=== PATIENT | female | born 1930 | race Asian ===

== ENCOUNTER 2018-11-10 14:39 | Inpatient (IN) | payer OTHER, MEDICAID ==
[~2018-11-10] VITALS: Ht 160 cm; Wt 44.0 kg
--- NOTE | 2018-11-10 14:45 | NUR ---
Placed in room 2 . Placed on senior software tester, blood pressure machine and pulse oximeter. To gown for exam. Side rails up. Report given to Demian NAVARRO.
--- NOTE | 2018-11-10 14:50 | NUR ---
Last teixeira in [facility] - 11/10/18 at 1553 by EUGENIE Patient transported to radiology via EDNA, accompanied by RAD STAFF.
--- NOTE | 2018-11-10 14:50 | NUR ---
PT BIB TRANSPORT FROM [facility] FOR [facility] S/P FALL AND L HUMERAL FX
--- NOTE | 2018-11-10 15:00 | NUR ---
ER at bedside examining patient.
--- NOTE | 2018-11-10 15:35 | NUR ---
Patient transported to radiology via GURNEY, accompanied by RAD STAFF.
[2018-11-10 15:36] LABS: BASOPHILS # (AUTO) 0.1 K/uL (0.0-0.2); BASOPHILS % (AUTO) 0.8 % (0.0-2.0); EOSINOPHILS # (AUTO) 0.2 K/uL (0.0-0.4); EOSINOPHILS % (AUTO) 2.9 % (0.0-4.0); HEMATOCRIT 39.3 % (36-48); HEMOGLOBIN 12.7 g/dL (12.0-16.0); LYMPHOCYTES # (AUTO) 1.6 K/uL (1.0-5.5); LYMPHOCYTES % (AUTO) 22.5 % (20.5-51.5); MEAN CORPUSCULAR HEMOGLOBIN 31 pg (27-31); MEAN CORPUSCULAR HGB CONC 32 % (32-36); MEAN CORPUSCULAR VOLUME 95 fL (79.0-98.0); MONOCYTES # (AUTO) 0.5 K/uL (0.0-1.0); MONOCYTES % (AUTO) 7.4 % (1.7-9.3); NEUTROPHILS # (AUTO) 4.7 K/uL (1.8-7.7); NEUTROPHILS % (AUTO) 66.4 % (40.0-70.0); PLATELET COUNT (AUTO) 259 K/uL (130-430); RED BLOOD CELL COUNT(AUTO) 4.12 MIL/uL (4.2-6.2); RED CELL DISTRIBUTION WIDTH 13.4 % (9.0-15.0); WHITE BLOOD COUNT (AUTO) 7.1 K/uL (4.8-10.8)
--- NOTE | 2018-11-10 15:45 | NUR ---
Returned from radiology, back to [facility].
[2018-11-10 15:47] LABS: ANION GAP 3 (5-15); CALCIUM 9.8 mg/dL (8.4-11.0); CHLORIDE 104 mmol/L (98-107); CREATININE 0.97 mg/dL (0.55-1.30); GLUCOSE 142 mg/dL (70-99); POTASSIUM 4.4 mmol/L (3.5-5.1); SODIUM SERUM 137 mmol/L (136-145); UREA NITROGEN, BLOOD 33 mg/dL (8-21)
[2018-11-10 15:50] LABS: INR 0.9 (0.8-1.2); PROTHROMBIN TIME 9.4 SECS (9.5-12.5)
[2018-11-10 15:52] LABS: ALANINE AMINOTRANSFERASE 17 U/L (12-78); ALBUMIN 3.6 g/dL (3.4-4.8); ASPARTATE AMINOTRANSFERASE 13 U/L (10-37); TOTAL BILIRUBIN 0.5 mg/dL (0.0-1.0)
[2018-11-10 15:54] LABS: ALCOHOL, BLOOD < 3 mg/dL (<10)
--- NOTE | 2018-11-10 16:15 | NUR ---
Pt resting no acute distress noted.Pt responds to verbal stimuli
[2018-11-10] MEDS ORDERED: NACL 0.9% 1,000 ML IV ONE (17:00)
--- NOTE | 2018-11-10 18:00 | NUR ---
# 24 gauge angiocath placed to L chest . Use of asceptic technique. Opsite placed over site. Blood return noted. Flushed with 10 cc of normal saline. No evidence of infiltration noted. Patient tolerated well.
--- NOTE | 2018-11-10 18:10 | NUR ---
IVF infusing,pt tolerating well.
[2018-11-10] MEDS ORDERED: INSU100V9 SQ (18:18)
[2018-11-10] MEDS ORDERED: INSU100V SQ (18:18)
[2018-11-10] MEDS ORDERED: DOCU100T10 PO (18:18)
[2018-11-10] MEDS ORDERED: ASPI-1155 PO (18:18)
[2018-11-10] MEDS ORDERED: MOM PO (18:18)
[2018-11-10] MEDS ORDERED: HYDR-4272 PO (18:19)
--- NOTE | 2018-11-10 18:27 | NUR ---
ADMISSION NOTE Received patient from ER via lena, received report from Demian NAVARRO. Patient admitted with diagnosis of dehydration/failure to thrive. Patient oriented to hospital routine, call light, toileting and safety-unable due to level of conciousness
--- NOTE | 2018-11-10 18:30 | NUR ---
Patient will be admitted to care of Benedict Mahoney. Admitted to Medsurg unit. Will go to room 105A. Summary report printed. Report will be given at bedside.
[2018-11-10 18:45] VITALS: BP_SYST 121
--- NOTE | 2018-11-10 19:10 | NUR ---
RECEIVED BEDSIDE REPORT AT BEDSIDE FROM MELANIE VASQUES,WITH NS INITIATED IN ER INFUSING BY GRAVITY TO BE COMPLETED.AWAKE NONVERBAL,BLINKS BOTH EYES, WHEN ASKED HER NAME.IVF INFUSING @LEFT UPPER CHEST #24 GAUGE.
--- NOTE | 2018-11-10 21:00 | NUR ---
REMAINS NON VERBAL. VITAL SIGNS TAKEN.ADMITTED WITH RIGHT FOREARM FX WITH SPLINTS FIXED IN ER.MOVES FINGERS ON COMMAND ,SKIN Warm, color normal. iv site clear.abdomen soft. incontinent of urine, no BM,NO EDEMA. NS STILL INFUSING ON A PUMP THIS TIME.
[2018-11-10 21:15] VITALS: BP_SYST 109
--- NOTE | 2018-11-10 21:35 | NUR ---
HYGIENE: YULISA CARE RENDERED BY DISTRICT FIRE CHIEF Q. CALL LIGHT WITHIN REACH,BED IN LOW POSITION. REPOSITIONED FOR COMFORT.
--- NOTE | 2018-11-10 21:55 | NUR ---
NOTIFIED Benedict ARNETT FOR ORDERS.
--- NOTE | 2018-11-10 23:00 | NUR ---
PHYSICAL ADMISSION ASSESSMENT COMPLETED.NEW IVF INITIATED. IV SITE CLEAR.
[2018-11-10] MEDS: D5NS 1,000 ML IV SCH (23:07)
--- NOTE | 2018-11-11 | NUR ---
REPOSITIONED FOR COMFORT. NON VERBAL. RIGHT FINGERS MOVES FREELY SKIN WARM TO TOUCH, COLOR NORMAL.
[2018-11-11 02:00] VITALS: BP_SYST 111
[2018-11-11] MEDS ORDERED: HYDROcodone/ACETAMIN 5-325 MG TAB (NORCO/ VICODIN) PO PRN ×2 (02:15)
--- NOTE | 2018-11-11 02:15 | NUR ---
DR. BETITO Granda MADE ROUNDS,SEEN AND EXAMINED PATIENT WITH ORDERS.
--- NOTE | 2018-11-11 04:35 | NUR ---
INCONTINENT: YULISA /SKIN CARE RENDERD. TURNED TO SIDE.
--- NOTE | 2018-11-11 05:30 | NUR ---
IV LINE PUMP ALARM PRESSURE.UNABLE TO FLUSH. FOUND OUT NEEDLE KINKED 2X.UNABLE TO TREAD IN.
--- NOTE | 2018-11-11 05:36 | NUR ---
CONSULTATION PAGED/CALLED Reason for Consultation: FAILURE TO THRIVE Person Who was Notified: AYAKA Consulting Physician: DR. JOHNSON ; STUD DAIRY CATTLE FARMER- DR. JOHNSON Ordering Physician: NILS ARNETT
--- NOTE | 2018-11-11 05:42 | NUR ---
CONSULTATION PAGED/CALLED Reason for Consultation: R HUMERAL FRACTURE Person Who was Notified: AYAKA Consulting Physician: DR. FISEHR Electrical/Instrument Technician Specialty: ORTHO Ordering Physician: BETITO CACERES
--- NOTE | 2018-11-11 06:40 | NUR ---
BLOOD SUGAR 180MG/DL. COVERED WITH SLIDING SCALE HUMOLOG,UPSET BEING POKED. NO S/S OF DISTRESS. TALKING IN HER LANGUAGE. PUSHING RN HANDS WHEN FIXING HER GOWN. CALL LIGHT WITHIN REACH, ALARM OF BED ON.
[2018-11-11] MEDS: INSULIN LISPRO SLIDING SCALE 100 UNITS/ML VIAL (humaLOG) SUBCUT PRN ×3 (07:00→22:01)
[2018-11-11] MEDS ORDERED: INSULIN LISPRO 100 UNIT SQ SCH (07:00)
[2018-11-11] MEDS: D5NS 1,000 ML IV SCH ×2 (08:00→18:32)
[2018-11-11 08:10] VITALS: BP_SYST 111
[2018-11-11] MEDS ORDERED: ASPIRIN 81 MG TAB.CHEW PO SCH (09:00)
[2018-11-11] MEDS ORDERED: PANTOPRAZOLE SODIUM 40 MG TAB PO SCH (09:00)
[2018-11-11] MEDS ORDERED: INSULIN GLARGINE HUM REC ANLOG 100 UNIT SQ SCH (09:00)
[2018-11-11] MEDS: ASPIRIN 81 MG TAB.CHEW PO SCH (09:40)
[2018-11-11] MEDS: MILK OF MAGNESIA 30 ML UDC PO SCH ×3 (09:41→21:52)
[2018-11-11] MEDS: DOCUSATE SODIUM 100 MG CAPSULE PO SCH ×2 (09:41→21:52)
--- NOTE | 2018-11-11 09:45 | NUR ---
Routine Patient resting in bed with no distress noted. Scheduled medications given. Patient stable.
[2018-11-11] MEDS ORDERED: PANTOPRAZOLE SODIUM 40 MG TAB PO ONE (10:00)
--- NOTE | 2018-11-11 10:12 | NUR ---
Nutrition Update Percy Scale 13 noted. Pt admitted for dehydration, FTT. Diet: pureed BMI: 17 kg/m2 RD to follow per nutrition care standards.
[2018-11-11 11:28] VITALS: BP_SYST 135
--- NOTE | 2018-11-11 11:52 | NUR ---
Routine Patient resting quietly in bed with no distress noted. Checked blood sugar: 109 mg/dl - no coverage required per sliding scale. Patient stable.
--- NOTE | 2018-11-11 13:21 | NUR ---
Routine Patient resting in bed with eyes closed. No distress noted. Patient stable.
--- NOTE | 2018-11-11 14:13 | NUR ---
Wound Evaluation: Late note for 11/11/18 at 1413 secondary to patient care. Wound Consult ordered for Low Percy Score. Patient evaluated for a low Percy score of 13. Patient was awake, alert, non-verbal, and received in a Breckenridge Bed with an IsoFlex SHAUNA mattress. Patient is incontinent, and needs assist to turn in bed. Skin is intact. Recommend reposition patient every 2 hours with pillow support. Elevate, off-load and float bilateral heels with pillows. Offload pressure areas with pillows for pressure re-distribution. Perform skin care and monitor skin integrity Q shift. Use moisture barrier cream on moisture susceptible areas QID and PRN for soiling. Initiate low air-loss therapy.
--- NOTE | 2018-11-11 15:11 | NUR ---
Routine Scheduled medication given per order. Patient stable at this time.
--- NOTE | 2018-11-11 15:12 | NUR ---
Nutrition Note RD received Nutrition Consult for Calorie Count from Dr. Menjivar 11/11/18 1860. Pt will be seen for Nutrition Assessment 11/12/18. RD notified [facility] staff of new order for calorie count, and also spoke w/ pt's primary RN and MOSAIC TILE MAKER regarding calorie count as well. Please give completed calorie count sheets to [facility] staff or leave in the [facility] box. RD to continue to follow as per nutrition care standards.
--- NOTE | 2018-11-11 16:16 | NUR ---
Initial DCP assessment : 87-yo, female, bedbound, nonverbal, right elbow fx x week, h/o DM, HTN, Dementia, GERD. BIB EMS from [facility] for ALOCm poor PO intake and increase falls. CM contacted /LVM to [facility]/ Counservator office and to [facility] acute/ # [phone] for their return call for further assessment. Cm to f/u. >> @ 3170 Marquise called back and confirmed the pt has no family and may return to same facility upon discharge. >> Marquise, conservator at [facility] # [phone]. >> Laney Iraheta, Registered Nurse Step Down office at [facility] # [phone].
[2018-11-11 16:21] VITALS: BP_SYST 128
--- NOTE | 2018-11-11 19:30 | NUR ---
OPENING NOTE Received patient resting in bed, awake, and calling out for someone. Non-labored breathing noted. IV to RFA has IVF infusing. Bed is locked to lowest position, bed alarm on, and call light near. Pad is wet and nurse visual merchandising assistant arrived to provide rip-care. Patient was repositioned.
[2018-11-11 20:00] VITALS: BP_SYST 112
--- NOTE | 2018-11-11 21:30 | NUR ---
Medications Due medications given. Patient does not speak Portuguese, however, she did seem to understand that I was checking her fingerstick blood glucose and that she needs insulin. She requested the light off when I was done. Will monitor.
[2018-11-11] MEDS: INSULIN GLARGINE 100 UNITS/ML 10 ML VIAL SUBCUT SCH (22:00)
[2018-11-11 23:17] VITALS: BP_SYST 102
--- NOTE | 2018-11-12 00:11 | NUR ---
Rounds Patient is awake, resting calmly in bed. She was repositioned and cooperated. No sign of distress noted. IVF infusing as ordered. Safety precautions in place and call light w/in reach.
--- NOTE | 2018-11-12 02:30 | NUR ---
Rounds Patient is resting w/eyes closed. Symmetrical rise and fall of chest. She was repositioned and cooperated. No sign of distress noted. IVF infusing as ordered. Safety precautions in place and call light w/in reach.
--- NOTE | 2018-11-12 04:15 | NUR ---
Rounds Patient was provided with rip-care and repositioned for comfort. Patient was calm and cooperative. IVF infusing well. Call light w/in reach.
[2018-11-12] MEDS: PANTOPRAZOLE SODIUM 40 MG TAB PO SCH (06:31)
[2018-11-12] MEDS: D5NS 1,000 ML IV SCH ×2 (06:32→18:00)
--- NOTE | 2018-11-12 06:50 | NUR ---
closing note Patient resting in comfortable position, no sign of distress noted. IVF infusing well, safety precautions in place. Needs met throughout shift, will endorse care.
--- NOTE | 2018-11-12 07:20 | NUR ---
am rounds: Received patient in bed, awake, georgian speaking. IV fluids of D5 NS at 80 cc/hr infusing to left forearm gauge 22. Bed is locked to lowest position, bed alarm on, and call light within reach.
[2018-11-12 07:51] LABS: BASOPHILS % (AUTO) 0.6 % (0.0-2.0); EOSINOPHILS # (AUTO) 0.1 K/uL (0.0-0.4); HEMATOCRIT 35.5 % (36-48); HEMOGLOBIN 11.7 g/dL (12.0-16.0); LYMPHOCYTES # (AUTO) 1.2 K/uL (1.0-5.5); LYMPHOCYTES % (AUTO) 20.1 % (20.5-51.5); MEAN CORPUSCULAR HEMOGLOBIN 31 pg (27-31); MEAN CORPUSCULAR HGB CONC 33 % (32-36); MEAN CORPUSCULAR VOLUME 94 fL (79.0-98.0); MONOCYTES # (AUTO) 0.5 K/uL (0.0-1.0); MONOCYTES % (AUTO) 8.1 % (1.7-9.3); NEUTROPHILS % (AUTO) 69.2 % (40.0-70.0); PLATELET COUNT (AUTO) 239 K/uL (130-430); RED BLOOD CELL COUNT(AUTO) 3.79 MIL/uL (4.2-6.2); RED CELL DISTRIBUTION WIDTH 13.1 % (9.0-15.0); WHITE BLOOD COUNT (AUTO) 5.8 K/uL (4.8-10.8)
[2018-11-12 08:06] LABS: ALANINE AMINOTRANSFERASE 16 U/L (12-78); ALBUMIN 2.8 g/dL (3.4-4.8); ANION GAP 2 (5-15); ASPARTATE AMINOTRANSFERASE 12 U/L (10-37); CALCIUM 8.3 mg/dL (8.4-11.0); CHLORIDE 109 mmol/L (98-107); CREATININE 0.79 mg/dL (0.55-1.30); GLUCOSE 137 mg/dL (70-99); PHOSPHORUS 1.5 mg/dL (2.7-4.5); SODIUM SERUM 139 mmol/L (136-145); TOTAL BILIRUBIN 0.4 mg/dL (0.0-1.0); UREA NITROGEN, BLOOD 25 mg/dL (8-21)
[2018-11-12 08:30] VITALS: BP_SYST 95
[2018-11-12] MEDS: ASPIRIN 81 MG TAB.CHEW PO SCH (09:06)
[2018-11-12] MEDS: DOCUSATE SODIUM 100 MG CAPSULE PO SCH ×2 (09:06→20:17)
[2018-11-12] MEDS: MILK OF MAGNESIA 30 ML UDC PO SCH ×3 (09:06→20:17)
[2018-11-12 11:22] VITALS: BP_SYST 131
--- NOTE | 2018-11-12 11:30 | NUR ---
ROUNDS: Patient is in bed. No signs of discomfort.
[2018-11-12] MEDS: INSULIN LISPRO SLIDING SCALE 100 UNITS/ML VIAL (humaLOG) SUBCUT PRN ×3 (11:40→20:21)
--- NOTE | 2018-11-12 13:57 | NUR ---
Dietitian Recommendations * Recommend continuing puree diet (ONS Ensure Enlive TID comes standard w/ meals; provides 1050 kcal/day, 60 gm protein/day) * Encourage increase PO intakes * Continue calorie count until 11/14/18 or until physician request SANDER WILLAMS Please refer to Nutrition Assessment for details. Addendum: 11/12/18 at [address] Amended: Links added.
--- NOTE | 2018-11-12 15:13 | NUR ---
Ortho consult: Called Dr. Brady's office to follow up on the consult. Spoke with Mami. faxed face sheet to [phone]. Addendum: 11/12/18 at 1614 by Eva Johnson RN Per community health coordinator Jo, she spoke with Dr. Brady yesterday, will not see the patient because he does not accept the insurance that patient has.
[2018-11-12 15:50] VITALS: BP_SYST 105
--- NOTE | 2018-11-12 16:43 | NUR ---
Rounds: Used blue phone to translate . patient is looking for her . industrial gas service helper states "patient is confused."
--- NOTE | 2018-11-12 18:29 | NUR ---
end of shift: Needs attended. No change in assessment. Call light within reach. Bed alarm is on.
--- NOTE | 2018-11-12 19:23 | NUR ---
OPENING NOTES Received pt and endorsement from day shift nurse. Pt is awake, alert and lying in bed. Pt on IVF with D5NS at 80ml/hr and infusing well on left forearm G22. No complains of pain or discomfort at this time. No signs of acute distress or SOB noted. Encouraged to use call light when needed. Safety precautions in place with 3 side rails up, wheels locked, bed alarm on and in lowest position. Call light with pt. Will continue to monitor.
[2018-11-12 20:13] VITALS: BP_SYST 105
[2018-11-12] MEDS: INSULIN GLARGINE 100 UNITS/ML 10 ML VIAL SUBCUT SCH (20:22)
--- NOTE | 2018-11-12 20:22 | NUR ---
MED PASS/FS BLOOD GLUCOSE Pt's blood glucose was 205mg/dL. Humalog 4 units SQ given per protocol and scheduled Lantus 5 units SQ given. All oral due meds given and pt tolerated well. Aspiration precautions maintained with head elevated at 45 degrees. Safety precautions in place and call light with pt. Will continue to monitor.
--- NOTE | 2018-11-13 00:07 | NUR ---
ROUNDS Pt is resting in bed with both eyes closed, with visible chest rise and fall with unlabored breathing noted. IVF infusing well. No signs of acute distress or SOB noted. Safety precautions in place and call light with pt. Will continue to monitor.
--- NOTE | 2018-11-13 03:17 | NUR ---
INCONTINENCE CARE Pt had a loose bowel movement, incontinence care rendered and pt tolerated well. No complains of pain and no signs of acute distress noted. IVF infusing well. Safety precautions in place and call light with pt. Will continue to monitor.
[2018-11-13] MEDS: PANTOPRAZOLE SODIUM 40 MG TAB PO SCH (06:07)
[2018-11-13] MEDS: D5NS 1,000 ML IV SCH ×2 (06:07→20:30)
[2018-11-13] MEDS: INSULIN LISPRO SLIDING SCALE 100 UNITS/ML VIAL (humaLOG) SUBCUT PRN ×4 (06:13→20:56)
--- NOTE | 2018-11-13 06:40 | NUR ---
CLOSING NOTES Pt is awake, alert and lying in bed. IVF infusing well. No complains of pain or discomfort. No signs of acute distress or SOB noted. All needs attended throughout the shift. Safety precautions maintained with 3 side rails up, wheels locked, bed alarm on and in lowest position. Call light with pt. Will endorse to day shift nurse.
--- NOTE | 2018-11-13 08:00 | NUR ---
AM rounds: Received patient in bed, awake, spanish speaking. IV fluids of D5 NS at 80 cc/hr infusing to left forearm gauge 22. Right upper extremity with splint. Able to move fingers, skin is warm. Bed is locked to lowest position, bed alarm on, and call light within reach.
[2018-11-13 08:07] VITALS: BP_SYST 142
[2018-11-13] MEDS: ASPIRIN 81 MG TAB.CHEW PO SCH (08:09)
[2018-11-13] MEDS: DOCUSATE SODIUM 100 MG CAPSULE PO SCH ×2 (08:10→20:57)
[2018-11-13] MEDS: MILK OF MAGNESIA 30 ML UDC PO SCH ×3 (08:10→20:58)
--- NOTE | 2018-11-13 10:22 | NUR ---
Ortho consult: Informed Dr. Beaver that Ortho has not seen patient due to her insurance. Ordered case management for the case.
[2018-11-13 10:27] LABS: BILIRUBIN,URINE NEGATIVE (NEGATIVE); BLOOD, URINE 3+ (NEGATIVE); CLARITY/URINE HAZY (CLEAR); COLOR,URINE YELLOW (YELLOW); GLUCOSE,URINE 1+ (NEGATIVE); KETONES,URINE NEGATIVE (NEGATIVE); LEUKOCYTE ESTERASE ,URINE 3+ (NEGATIVE); NITRITE, URINE NEGATIVE (NEGATIVE); PROTEIN URINE 1+ (NEGATIVE); UROBILINOGEN,URINE 0.2 (0.2-1.0)
[2018-11-13 10:50] LABS: BACTERIA,URINE MANY /HPF (None Seen); WBC,URINE 50-80 /HPF (0-3)
[2018-11-13 10:51] LABS: MUCUS,URINE None Seen /LPF (None Seen)
--- NOTE | 2018-11-13 10:56 | NUR ---
Case management: Spoke with Jacklyn regarding need for ortho consult.
--- NOTE | 2018-11-13 11:06 | NUR ---
CONSULTATION PAGED/CALLED Reason for Consultation: [] RIGHT HUMURUS FX Person Who was Notified: [] BRIELLE Consulting Physician: [] DR Cheryle EPPERSON Certification Officer Specialty: [] ORTHO Ordering Physician: [] DR NILS CISSE
[2018-11-13 12:00] VITALS: BP_SYST 149
--- NOTE | 2018-11-13 12:06 | NUR ---
DC PLANNING Per pt's nurse, Eva, she spoke w Dr Beaver & wants a ARIK for ortho to see pt. Called & left msg for Tanesha MATOS & Mck[employer] Licensed Land Surveyor. Addendum: 11/13/18 at 1407 by Jacklyn Alva RN Per nurse Dr Mcgraw saw pt. Informed Tanesha no ARIK needed.
[2018-11-13] MEDS ORDERED: cefTRIAXone 1 GM in D5W 50 ML IV SCH (12:15)
[2018-11-13] MEDS ORDERED: LORazepam 1 MG TABLET PO PRN (12:15)
--- NOTE | 2018-11-13 13:00 | NUR ---
IV start Patient is screaming, pulled out iv and removed splint. Dr. Kalee Beaver saw patient. Refused splint re application and iv start.
--- NOTE | 2018-11-13 13:59 | NUR ---
ORTHO CONSULT: Seen by Dr. Mcgraw, no further ortho management needed. Continue with the splint. Jacklyn sample case porter is aware.
--- NOTE | 2018-11-13 15:00 | NUR ---
Rounds: Patient is awake, screaming. Refused ativan PO. Can't start IV line, patient is refusing,
[2018-11-13 16:32] VITALS: BP_SYST 139
[2018-11-13] MEDS ORDERED: LORazepam 2 MG/ML VIAL IM ONE (17:00)
--- NOTE | 2018-11-13 17:00 | NUR ---
NOTE Received report from previous RN Eva for continuation of care. Agree with 08am assessment done. Pt was brought out into hallway and settled outside room in wheelchair at this time. Dr Kalee Beaver called for pt's yelling and screaming. Waiting for call back.
--- NOTE | 2018-11-13 17:30 | NUR ---
Note Received order for Ativan 1mg IM X1 from Dr Kalee Beaver. Pt wants to eat dinner at this time. Will wait for pt to finish her dinner before Ativan 1mg IM given and pt in bed before starting new IV and infusing Rocephin IVPB at this time. Pt sitting in wheelchair calmly at this time. Dinner trays are being passed out at this time. No needs noted. Pt in front of nurses' station.
--- NOTE | 2018-11-13 18:10 | NUR ---
Note Pt finishing her dinner at this time. Will endorse to NOC RN for Ativan IM and to start IV and given pt IVPB Rocephin. No SOB/resp distress or pain/discomfort in right arm/hand. No needs noted at this time. Pt was checked on from 1700 on till end of shift, q1' and PRN for needs and care. Call light within reach. Pt stable at this time.
--- NOTE | 2018-11-13 19:34 | NUR ---
OPENING NOTES Received pt and endorsement from day shift nurse. Pt is resting in bed with both eyes closed, with visible chest rise and fall with unlabored breathing noted. No complains of pain or discomfort at this time. No signs of acute distress or SOB noted. Will insert new IV. Safety precautions in place with 3 side rails up, wheels locked, bed alarm on and in lowest position. Call light with pt. Will continue to monitor.
[2018-11-13 20:31] VITALS: BP_SYST 125
--- NOTE | 2018-11-13 20:50 | NUR ---
IV INSERTION New IV inserted by MELANIE Nicholson on left forearm G22, with good blood return and flushable with saline. Reconnected IVF and is infusing well. No signs of infiltration noted. Safety precautions in place and call light with pt. Will continue to monitor.
[2018-11-13] MEDS: INSULIN GLARGINE 100 UNITS/ML 10 ML VIAL SUBCUT SCH (20:57)
--- NOTE | 2018-11-14 02:59 | NUR ---
ROUNDS Pt is resting in bed with both eyes closed, with visible chest rise and fall with unlabored breathing noted. IVF infusing well. No complains of pain and no signs of acute distress noted. No needs at this time. Safety precautions in place and call light with pt. Will continue to monitor.
[2018-11-14] MEDS: D5NS 1,000 ML IV SCH ×2 (03:54→21:17)
--- NOTE | 2018-11-14 04:10 | NUR ---
ROUNDS Pt is resting in bed with both eyes closed, with visible chest rise and fall with unlabored breathing noted. No signs of acute distress. Safety precautions in place and call light with pt. Will continue to monitor.
[2018-11-14] MEDS: INSULIN LISPRO SLIDING SCALE 100 UNITS/ML VIAL (humaLOG) SUBCUT PRN ×3 (06:02→21:18)
[2018-11-14] MEDS: PANTOPRAZOLE SODIUM 40 MG TAB PO SCH (06:04)
--- NOTE | 2018-11-14 06:07 | NUR ---
PROTONIX REFUSED Pt refused protonix, pt does not want to open her mouth and spitting. Medication already opened thus it can't be returned to the medical center. Tablet is placed to medication destroyer.
--- NOTE | 2018-11-14 06:31 | NUR ---
CLOSING NOTES Pt is resting in bed with both eyes closed, with visible chest rise and fall with unlabored breathing noted. IVF infusing well. No complains of pain or discomfort. No signs of acute distress or SOB noted. All needs attended throughout the shift. Safety precautions maintained with 3 side rails up, wheels locked, bed alarm on and in lowest position. Call light with pt. Will endorse to day shift nurse.
[2018-11-14 08:00] VITALS: BP_SYST 95
--- NOTE | 2018-11-14 08:00 | NUR ---
Patient is awake and resting, chest rising and falling symmetrically. Eyes track but do not make coherent verbal response. IV on left FA, #22, infusing D5 NS at 80ml/hr. Instructed to use call light, which is in place, for needs. Bed locked at the lowest position with alarm on. Will continue to monitor.
[2018-11-14] MEDS: DOCUSATE SODIUM 100 MG CAPSULE PO SCH ×2 (08:20→21:16)
[2018-11-14] MEDS: ASPIRIN 81 MG TAB.CHEW PO SCH (08:20)
[2018-11-14] MEDS: MILK OF MAGNESIA 30 ML UDC PO SCH ×3 (08:20→21:16)
--- NOTE | 2018-11-14 10:20 | NUR ---
Patient is resting, easily arousable. No signs of distress noted.
[2018-11-14 11:28] VITALS: BP_SYST 106
--- NOTE | 2018-11-14 11:31 | NUR ---
PAGED PAGED ILANA MENDOZA AT [phone] SPOKE WITH SIERRA.
--- NOTE | 2018-11-14 11:47 | NUR ---
Discharge Planning: DCP faxed pt referral to [facility] (f [phone] p [phone]) DCP to follow up Addendum: 11/14/18 at 1436 by Malgorzata Henriquez DP DCP returned called to follow up [facility] (f [phone] p [phone]) lm for admissions. Addendum: 11/14/18 at 1504 by Malgorzata Henriquez DP DCP received message from Mario De La Cruz ) [facility] (f [phone] p [phone]) ALTAGRACIAP left two lm returning call. ALTAGRACIAP made CM aware not able to reach admissions message was left. Addendum: 11/14/18 at 1534 by Malgorzata Henriquez DP [facility] (f [phone] p [phone]) pt accepted to [facility] # to report [phone]. Patient still needs a discharge order, spoke to nurse and will leave Transportation [facility] ([phone]) Will Call nurse made aware.
--- NOTE | 2018-11-14 13:10 | NUR ---
consumer affairs manager Pebbles speaks with Dr. Beaver and RN about patient's discharge. Dr. Beaver would like to have a progress notes, from Dr. Mcgraw, which is absent at this time. Dr. Mcgraw is called and awaiting call back.
--- NOTE | 2018-11-14 14:58 | NUR ---
Nutrition F/U & Calorie Count Update RD reviewed pt's current EMR record including diet Hx, physician notes, nursing notes, pertinent labs/meds/procedures, care trends, and care activity. Current Diet Order: puree x3 days Subjective Info: Pt seen sleeping at time of RD visit. Lunch tray seen untouched. Per nursing notes, pt has been mostly drinking 100% of Ensure Enlive ONS, and eating very minimal food items (scrambled eggs, mashed potatoes, cream of potato soup, and juices). Daily total for 11/12/16 calorie count = 1410 calories/day and 58 gm protein/day per [employer] Nutrition Analysis software. This meets 90% of lower end of estimated caloric needs and 94% of lower end of estimated protein needs. Pt requires a lot of encouragement during meal times to better meet optimal nutritional needs. Current % PO 18% average x2 meals, x3 refusals per EMR Estimated Energy Expenditure (kcals/day) 3661-9343 kcal/day (30-35 kcal/kg IBW for wt gain promotion) Estimated Protein Required (g/day) 62-78 gm/day (1.2-1.5 gm/kg IBw for wt gain promotion) Estimated Fluid Required (l/day) 1.6-1.8 L/day (30-35 ml/kg IBW for dehydration) Problem/Etiology/Signs/Symptoms Suboptimal PO intakes related to possible lack of appetite associated w/ cognitive limitations as evidenced by poor PO intake records and Hx of dementia. *ongoing Expected Outcomes/Goals - Monitor appetite and PO intakes w/ goal of pt meeting at least 75% of estimated nutritional needs, labs trending WNL, normal GI function, and skin integrity/wt maintenance Dietitian Recommendations * Recommend continuing puree diet (ONS Ensure Enlive TID comes standard w/ meals; provides 1050 kcal/day, 60 gm protein/day) * Encourage increase PO intakes * D/C calorie count Follow Up High Risk: F/U in 2-3 days
--- NOTE | 2018-11-14 15:08 | NUR ---
Dr. Mcgraw is contacted, and states the patient can be discharged on ortho standpoint.
--- NOTE | 2018-11-14 15:08 | NUR ---
Dietitian Recommendations * Recommend continuing puree diet (ONS Ensure Enlive TID comes standard w/ meals; provides 1050 kcal/day, 60 gm protein/day) * Encourage increase PO intakes * D/C calorie count LP, RD Please refer to Nutrition F/U for details.
[2018-11-14 15:33] VITALS: BP_SYST 124
--- NOTE | 2018-11-14 17:07 | NUR ---
ortho consultation Dr Mcgraw was here here to consult patient yesterday. No documentation that he saw patient. Dr Mcgraw was called today multiple times. Dr Mcgraw returned the call around 3 pm and confirmed that he saw patient and that patient is cleared per his stand point to be discharge. Dr Beaver was notified of this but would like to have Ortho documentation that patient is cleared for discharge before prior to discharged
--- NOTE | 2018-11-14 19:05 | NUR ---
OPENING NOTES/PULLED OUT IV Bedside report received from dayshift nurse. Patient received lying in bed, no s/s of acute distress noted. Breathing is even and unlabored. Patient pulled out IV at this time, catheter fully intact, 2x2 gauze applied on area. No active bleeding noted. Will initiate new IV later. SCDs attached and operating. Call light with patient. Bed alarm on. Bed is locked and at lowest position. Will continue to monitor.
[2018-11-14 20:00] VITALS: BP_SYST 124
--- NOTE | 2018-11-14 20:28 | NUR ---
paged paged for Dr Kalee Beaver, dialed . s/w My.
--- NOTE | 2018-11-14 20:58 | NUR ---
paged second page for Dr Benedict Beaver, dialed . s/w My.
--- NOTE | 2018-11-14 21:00 | NUR ---
ROUNDS/NEW IV New IV at left hand, 22 gauge, IVF infusing well, IV site patent, no signs of infiltration or infection noted. Patient shows no signs of discomfort. Chest rise and fall even bilaterally. SCDs attached. Bed alarm on. Will continue to monitor.
--- NOTE | 2018-11-14 21:03 | NUR ---
SPOKE WITH DR CISSE RE: DC Informed Dr. Cisse that Case Management has set up DC for patient. Dr. Cisse stated to not DC patient unless there is a progress note from Dr. Mcgraw. Will page Dr. Mcgraw at this time.
[2018-11-14] MEDS: CIPROFLOXACIN HCL 500 MG TABLET PO SCH (21:16)
[2018-11-14] MEDS: INSULIN GLARGINE 100 UNITS/ML 10 ML VIAL SUBCUT SCH (21:18)
--- NOTE | 2018-11-14 23:00 | NUR ---
ROUNDS Patient in bed at this time, sleeping. No s/s of acute distress noted. Breathing even and unlabored. IVF infusing well. Call light with patient. Bed alarm on. Will continue to monitor.
[2018-11-15 00:36] VITALS: BP_SYST 111
--- NOTE | 2018-11-15 01:00 | NUR ---
ROUNDS Patient in bed sleeping comfortably. No signs of discomfort noted. Chest rise and fall even bilaterally. IVF infusing well. SCDs attached and operating. Call light with patient. Bed alarm on. Will continue to monitor.
--- NOTE | 2018-11-15 03:00 | NUR ---
ROUNDS/YULISA CARE Patient awake, pointing at groin and moaning. Patient voided. Incontinent care conducted by MANAGER AREA, assisted by RN. Patient tolerated activity well. All needs met. Call light with patient. SCDs attached. Bed alarm on. Bed is locked and at lowest position. Will continue to monitor.
--- NOTE | 2018-11-15 05:00 | NUR ---
ROUNDS Patient in bed asleep at this time. No signs of discomfort noted. Chest rise and fall even bilaterally. IVF infusing well. SCDs attached and operating. Call light with patient. Bed alarm on. Will continue to monitor.
[2018-11-15] MEDS: PANTOPRAZOLE SODIUM 40 MG TAB PO SCH (05:58)
--- NOTE | 2018-11-15 06:15 | NUR ---
CLOSING NOTES Patient in bed sleeping at this time. No s/s of acute distress noted. Breathing even and unlabored. IVF infusing well, IV site patent, no signs of infiltration or infection noted. Skin warm and dry to touch, no signs of hypoglycemia noted. SCDs attached and operating. All needs met throughout shift. Fall and safety precautions maintained throughout shift. Will continue to monitor until patient care is endorsed to oncoming dayshift nurse.
--- NOTE | 2018-11-15 07:20 | NUR ---
Opening Note: Patient in bed resting. No signs of pain or discomfort noted. Breathing is even and unlabored with no distress noted. IV patent and intact, IVF infusing per MD orders, no signs of infiltration noted. SCD's in place. Safety precautions in place; bed in lowest position, wheels locked, side rails x3, bed alarm activated and call light within reach. No needs at this time. Will continue to monitor.
[2018-11-15 08:32] VITALS: BP_SYST 96
[2018-11-15] MEDS: D5NS 1,000 ML IV SCH (08:38)
[2018-11-15] MEDS: DOCUSATE SODIUM 100 MG CAPSULE PO SCH (08:38)
[2018-11-15] MEDS: ASPIRIN 81 MG TAB.CHEW PO SCH (08:38)
[2018-11-15] MEDS: MILK OF MAGNESIA 30 ML UDC PO SCH ×2 (08:38→14:27)
--- NOTE | 2018-11-15 10:06 | NUR ---
Rounds: Patient in bed resting, repositioned. No distress noted. Will continue to monitor.
[2018-11-15] MEDS: CIPROFLOXACIN HCL 500 MG TABLET PO SCH (10:20)
[2018-11-15] MEDS: INSULIN LISPRO SLIDING SCALE 100 UNITS/ML VIAL (humaLOG) SUBCUT PRN ×2 (11:37→17:24)
--- NOTE | 2018-11-15 11:37 | NUR ---
Accucheck: Blood sugar 174 mg/dL, covered with 2 units Humalog per sliding scale, see eMAR.
--- NOTE | 2018-11-15 12:00 | NUR ---
Dr. Mcgraw at bedside: Dr. Mcgraw at bedside, made aware of discharge and awaiting progress note. Progress note written and charted. Will inform Dr. Beaver.
[2018-11-15 12:26] VITALS: BP_SYST 114; BP_SYST 99
--- NOTE | 2018-11-15 12:34 | NUR ---
Called [facility]: Called Margarito Savage, [facility] of [facility], spoke to Lynda Wang command and control specialist for him. Made aware of patient's transfer back to [facility].
[2018-11-15 12:59] VITALS: BP_SYST 114
--- NOTE | 2018-11-15 13:48 | NUR ---
Called [facility]: Arranged pickup time @ [address] Beaver's request.
--- NOTE | 2018-11-15 13:50 | NUR ---
Called Report: Called [facility] and gave report to Roxy, call back number given and all questions answered.
--- NOTE | 2018-11-15 16:24 | NUR ---
Rounds: Patient in bed resting. Repositioned for comfort. Breathing is even and unlabored with no distress noted. No pain or discomfort noted. IVF infusing with no signs of infiltration. Safety precautions in place and call light within reach. Will continue to monitor.
[2018-11-15 16:30] VITALS: BP_SYST 99
--- NOTE | 2018-11-15 17:26 | NUR ---
Accucheck: Blood sugar 198 mg/dL, covered with 2 units Humalog per sliding scale, see eMAR.
--- NOTE | 2018-11-15 18:00 | NUR ---
Dinner: Patient had 20% of dinner and had 100% of her boost.
--- NOTE | 2018-11-15 18:30 | NUR ---
D/C Patient Patient given medication reconciliation form and D/C instructions. Exit Care provided. Patient confused. MD discussed with patient the results and treatment provided. Patient in stable condition, ID band removed. IV catheter removed, intact and dressing applied, no active bleeding. Patient educated on pain management. All belongings sent with patient. Placed in pink gown and blanket. Wrist band with name and placed.
== END 2018-11-15 18:30 | DRG 640 ==
LOC: SED 14:39 → EDSEX 14:39 → SMU 17:30
PROVIDERS: ADMIT Internal Medicine Infectious Disease; ATTEND Internal Medicine Infectious Disease
DX: E86.0 Dehydration (principal); G93.41 Metabolic encephalopathy; N39.0 Urinary tract infection, site not specified; S42.401A Unspecified fracture of lower end of right humerus, initial encounter for closed fracture; Z68.1 Body mass index [BMI] 19.9 or less, adult; E11.9 Type 2 diabetes mellitus without complications; X58.XXXA Exposure to other specified factors, initial encounter; R62.7 Adult failure to thrive; I10 Essential (primary) hypertension; E78.5 Hyperlipidemia, unspecified; F03.90 Unspecified dementia, unspecified severity, without behavioral disturbance, psychotic disturbance, mood disturbance, and anxiety; K21.9 Gastro-esophageal reflux disease without esophagitis; Z79.84 Long term (current) use of oral hypoglycemic drugs; Z79.82 Long term (current) use of aspirin; Y93.89 Activity, other specified; Y92.89 Other specified places as the place of occurrence of the external cause; Y99.8 Other external cause status
CPT/HCPCS: 36415; 70450-TC; 71045; 73060-TC; 80053; 81000-TC; 82962; 83735-TC; 84100-TC; 84484; 85025; 85610-TC; 85730-TC; 87081; 87086; 93005; 96360; 99285; G0482; J0696; J1815; J7030; J7042; J7060